=== PATIENT | female | born 1945 | race Caucasian/White ===

== ENCOUNTER 2020-05-21 13:53 | Emergency (ER) | payer MEDICARE, SELFPAY ==
--- NOTE | ~2020-05-21 | XR_ITS ---
XR chest 1V portable DATE: 05/21/2020 14:49 INDICATION: One-week postoperative from left partial pneumonectomy TECHNIQUE: Portable upright AP chest on 05/21/2020 at 1450 hours COMPARISON: 03/03/2007 PA and lateral chest FINDINGS: Postoperative changes including resection of portions of the left first, second, third and fourth ribs, partial left pneumonectomy. There is subcutaneous emphysema in the left apical and peria pical regions. Mild discoid atelectasis or scarring in the left lower lobe. No pulmonary consolidation is evident. N o pleural effusion or pulmonary vascular congestion. Normal heart size. Diffuse osteopenia. There is some chronic loss of height of T10. IMPRESSION: Recent partial left partial pneumonectomy and resection of multiple upper left ribs Reviewed, dictated and finalized at location A.
[2020-05-21 13:51] VITALS: PULSE 95; RESP 23; TEMP 36.4; O2SAT 98
[2020-05-21 14:03] VITALS: BP 136/74; PULSE 90; RESP 18; O2SAT 98
[2020-05-21 14:11] VITALS: PULSE 90
--- NOTE | 2020-05-21 14:14 | ECG_ITS ---
Measurements Intervals [place] Rate: 88 P: 101 IN: 107 QRS: 97 QRSD: 82 T: 90 QT: 356 QTc: 432 Interpretive Statements SINUS RHYTHM WITH SHORT IN INTERVAL RIGHT AXIS DEVIATION BORDERLINE T WAVE ABNORMALITY- HIGH LATERAL LEADS BASELINE ARTIFACT- I, III, AVR, AVL, V1 BORDERLINE ECG Electronically Signed On 05-22-2020 9:31:27 CDT by Darren Nielsen D.O.
[2020-05-21 14:23] LABS: Basophils Percent Auto 0.3 % (0.2-1.2); Eosinophils Absolute Auto 0.2 K/mm3 (0-0.3); Eosinophils Percent Auto 1.5 % (0-4.4); Hemoglobin 9.7 g/dL (12.0-15.0); Immature Granulocyte Absolute 0.04 K/mm3 (0.00-0.031); Immature Granulocyte Percent A 0.4 % (0-0.5); Lymphocytes Absolute Auto 0.77 K/mm3 (0.9-3.2); Lymphocytes Percent Auto 7.6 % (18.3-44.2); Mean Corpuscular HGB Conc 31.3 g/dl (32-36); Mean Corpuscular Hemoglobin 29.1 pg (26-34); Mean Corpuscular Volume 93.1 fl (80-100); Mean Platelet Volume 8.5 fl (7.4-10.4); Monocytes Absolute Auto 0.7 K/mm3 (0.1-0.6); Monocytes Percent Auto 6.7 % (2.6-8.5); Neutrophils Absolute Auto 8.5 K/mm3 (1.3-6.7); Neutrophils Percent Auto 83.5 % (45.5-73.1); Platelet Count Result 537 k/mm3 (150-375); Red Blood Count 3.33 M/mm3 (4.2-5.4); Red Cell Distribution Width 14.6 % (11.5-14.5); White Blood Count 10.2 K/mm3 (4.5-10.0)
[2020-05-21 14:39] LABS: Alanine Aminotransferase 10 U/L (4-35); Albumin Level 3.8 g/dL (3.5-5.1); Alkaline Phosphatase 104 U/L (38-126); Aspartate Amino Transferase 20 U/L (14-36); Bilirubin,Total 0.3 mg/dL (0.2-1.3); Blood Urea Nitrogen 18 mg/dL (7-17); Calcium 9.6 mg/dL (8.4-10.2); Carbon Dioxide 24 mmol/L (22-30); Chloride 101 mmol/L (98-107); Estimated Glomerular Filt Rate > 60; Glucose 112 mg/dL (65-105); Potassium 3.8 mmol/L (3.4-5.0); Sodium 135 mmol/L (137-145)
[2020-05-21] MEDS: SODIUM CHLORIDE 0.9% IV 1,000 ML 999 ML IV CONT (15:01)
--- NOTE | 2020-05-21 15:03 | ED.GENADULT ---
HPI - General Adult General Chief complaint: Weakness Stated complaint: weakness x few days Time Seen by Provider: 05/21/20 14:24 History of Present Illness HPI narrative: Patient is a 75 y/o female complaining of moderate to severe generalized weakness for last 3 days. She states that she has no appetite and has not been eating or drinking much during last few days. She denies any fever, chill, chest pain or abdominal pain. She has slight diarrhea, which she attributed to decreasing the dose of Oxycodone. Of note, she had left upper lobe rection approximately one month ago at [place]. Related Data Home Medications Medication Instructions Recorded Confirmed acetaminophen 500 mg PO Q6H PRN 05/21/20 calcium carbonate [Calcium 600] 600 mg PO DAILY 05/21/20 cholecalciferol (vitamin D3) 50 mcg PO DAILY 05/21/20 [Vitamin D3] cyclobenzaprine 5 mg PO BID PRN 05/21/20 gabapentin 100 mg PO TID 05/21/20 guaifenesin 600 mg PO Q12H PRN 05/21/20 lidocaine 1 patch TOPICAL DAILY 05/21/20 mirabegron 50 mg PO DAILY 05/21/20 ondansetron 8 mg PO Q8H PRN 05/21/20 oxycodone 10 mg PO Q6H PRN 05/21/20 polyethylene glycol 3350 [Miralax] 17 g PO DAILY 05/21/20 prochlorperazine maleate 10 mg PO Q6H PRN 05/21/20 Allergies Allergy/AdvReac Type Severity Reaction Status Date / Time Cephalosporins Allergy Severe Unknown Verified 05/21/20 14:12 bacitracin Allergy Unknown Unknown Verified 05/21/20 14:12 neomycin Allergy Unknown Unknown Verified 05/21/20 14:12 polymyxin B Allergy Unknown Unknown Verified 05/21/20 14:12 Review of Systems Constitutional: Constitutional: Denies chills, Denies fever(s), Denies headache(s), Reports lethargy, Reports malaise, Reports poor appetite, Reports weakness and Reports weight loss Eyes: Eyes: Denies blurry vision ENT: Denies headache(s) and Denies neck pain Cardiovascular: Cardiovascular: Denies chest pain and Denies dyspnea Respiratory: Respiratory: Denies cough and Denies dyspnea Gastrointestinal: Gastrointestinal: Denies abdominal pain, Denies diarrhea, Denies nausea and Denies vomiting Genitourinary: Genitourinary: Denies hematuria and Denies dysuria Musculoskeletal: Musculoskeletal: Denies back pain and Denies neck pain Neurologic: Denies headache(s) and Denies weakness PMFSH Past Medical History Medical History (Updated 05/21/20 @ 17:06 by Amber Gabriel MD) Lung cancer Exam Const: General: no acute distress and well developed Orientation/consciousness: oriented to person, oriented to place, oriented to time and patient oriented x3 HENMT: Head: normocephalic Ears: external ears normal General nose exam: Normal external nose present Eyes: General: appearance normal, both eyes and all related structures Conjunctivae: conjunctivae normal Neck: Neck: normal visual inspection and full ROM Chest: Chest palpation & inspection: normal inspection of the chest and no tenderness Resp: Effort & Inspection: normal respiratory effort Auscultation: clear to auscultation bilaterally Cardio: Rate: regular rate Rhythm: regular rhythm GI: GI Palp: No abdominal tenderness and Yes Soft to palpation Skin: General skin exam: normal color and turgor normal Neuro: General: oriented to person, oriented to place, oriented to time and patient oriented x3 Cognition (Neuro): normal cognition Extrem: General: normal to inspection, full ROM and no pedal edema Psych: Appearance: grossly normal Mental Status: mental status grossly normal Affect: normal affect Course Reevaluation(s) Reevaluation #1: Patient is able to ambulate without difficulty. Date: 05/21/20 Time: 16:40 Vital Signs Vital signs: Vital Signs Temperature 36.4 C 05/21/20 13:51 Pulse Rate 95 05/21/20 13:51 Respiratory Rate 23 H 05/21/20 13:51 Pulse Oximetry 98 05/21/20 13:51 Temperature 36.4 C 05/21/20 13:51 Pulse Rate 90 05/21/20 14:11 Respiratory Rate 18 05/21/20 14:03 Blood Pressure 136/74
[2020-05-21 15:30] VITALS: BP 112/74; PULSE 90; RESP 20; O2SAT 97
[2020-05-21 15:44] LABS: Add Urine Microscopic? YES; Amorphous Sediment Urine Few; Appearance Urine Cloudy (Clear); Bacteria Urine Trace /hpf; Bilirubin Urine Negative (Negative); Color Urine Yellow (Yellow); Glucose Urine UA Negative (Negative); Ketones Urine Trace mg/dL (Negative); Leukocyte Esterase Ur Negative LEU/UL (Negative); Mucus Urine Heavy /lpf; Nitrate Urine Negative (Negative); Protein Urine Negative (Negative); Specific Grav Ur 1.019 (1.001-1.035); Squamous Epithelial Cell Urine Few /hpf (Few)
[2020-05-21 15:45] LABS: Blood Urine Negative (Negative)
[2020-05-21 16:10] VITALS: PULSE 88; RESP 20; O2SAT 97
[2020-05-21 17:20] VITALS: BP 110/70; PULSE 89; RESP 20; O2SAT 97
== END 2020-05-21 17:20 | disposition home or self-care (01) ==
PROVIDERS: Emergency Medicine; Emergency Provider Emergency Medicine; PCP Internal Medicine
DX: R53.1 Weakness (principal); R63.0 Anorexia; Z68.1 Body mass index [BMI] 19.9 or less, adult
CPT/HCPCS: 36415; 71045; 80053; 81001; 85025; 87086; 93005; 96360; 99283; J7030

== ENCOUNTER 2020-09-02 13:14 | Emergency (ER) | payer MEDICARE, SELFPAY ==
[2020-09-02 13:31] VITALS: BP 133/76; PULSE 98; RESP 22; TEMP 36.6; O2SAT 100
--- NOTE | 2020-09-02 13:35 | ED.FEMALEGU ---
HPI - Female Genitourinary General Chief complaint: Urogenital-Female Stated complaint: uti Time Seen by Provider: 09/02/20 13:36 Source: patient Mode of arrival: ambulatory Limitations: no limitations History of Present Illness HPI Narrative: Nimo Osuna is a 75 yo female with a PMH of overactve bladder and chronic pain from chemo and radiation for lung cancer on left , who comes to express care with daughter for confusion and unsteadiness today. Daughter just returned from a trip and states that she is somewhat disoriented to day and time. Mother seems to be ambulating well inside clinic; denies pain Gabapentin tends to constipate patient; she took magnesium citrate 6 days ago and had diarrhea for 3 days, states when she has bouts of diarrhea by the time she ends up with UTI Related Data Home Medications Medication Instructions Recorded Confirmed mirabegron 50 mg PO DAILY 05/21/20 09/02/20 gabapentin 300 mg PO DAILY 09/02/20 09/02/20 Allergies Allergy/AdvReac Type Severity Reaction Status Date / Time Cephalosporins Allergy Severe Unknown Verified 05/21/20 14:12 bacitracin Allergy Unknown Unknown Verified 05/21/20 14:12 neomycin Allergy Unknown Unknown Verified 05/21/20 14:12 polymyxin B Allergy Unknown Unknown Verified 05/21/20 14:12 Review of Systems Review of Systems: Narrative: CONSTITUTIONAL: Denies fever, chills, sweats. EYES: Denies visual changes, redness, discharge. ENT: Denies rhinorrhea, congestion, sore throat, otalgia. CARDIOVASCULAR: Denies chest pain, palpitations, edema. RESPIRATORY: Denies dyspnea, wheezing, cough GASTROINTESTINAL: Denies abdominal pain, nausea, vomiting, diarrhea (6 days ago). GENITOURINARY: Denies dysuria, hematuria, abnormal discharge SKIN: Denies rash or itching. NEUROLOGIC: Denies numbness, or focal weakness.exam General confusion PSYCHIATRIC: Denies anxiety or depression. [facility] Past Medical History Medical History (Updated 09/02/20 @ 13:54 by Prisca Beyer CNP) Chronic pain Lung cancer Overactive bladder Surgical History Surgical History History of lobectomy of lung Social History Social History Smoking packs per day: 0.1 Smoking cigarettes per day: 2.0 Smoking status: Current every day smoker Tobacco type: cigarettes Alcohol intake: current Alcohol use details: Occasional only Living arrangements: alone Gender identity (if verbalized by the patient): Female Comments At time of signature, I agree with nursing past medical, surgical, social and family history. There is no relevant family history pertinent to the presenting complaint. Exam Narrative: Exam Narrative: GENERAL: Thin elderly , well-developed patient, in no apparent distress. HEAD: normocephalic, atraumatic. EYES: = Sclera clear/white. Vision is grossly intact. EARS: External ears normal, auditory canals clear and without drainage, TMs normal without perforation. Hearing grossly intact. NOSE: External nose normal without nasal discharge, nares without redness, no rhinorrhea. THROAT: Mucous membranes moist, NECK: Neck supple, CARDIOVASCULAR: Regular rate and rhythm without murmurs, gallops, or rubs. Has some left-sided chest wall pain intermittently RESPIRATORY: Clear to auscultation. Breath sounds equal bilaterally. Limited breath sounds lower lobes, no wheezes, rales, or rhonchi. GASTROINTESTINAL: Abdomen soft, non-tender, SKIN: warm, intact with no suspicious lesions or rash, good texture and turgor. NEURO: awake, alert, and oriented to person, place and time. There were no obvious focal neurologic abnormalities. Steady gait. EXTREMITIES: Normal range of motion. BACK: Nontender without deformity Course Course Emergency Course: Patient here for evaluation of confusion with a history of lung cancer and chemo and radiation They done-results show 3+ leuk
[2020-09-02 13:55] VITALS: BP 133/76; PULSE 98; RESP 22; TEMP 36.6; O2SAT 100
== END 2020-09-02 13:58 | disposition home or self-care (01) ==
PROVIDERS: Emergency Provider Nurse Practitioner
DX: N30.01 Acute cystitis with hematuria (principal); C34.92 Malignant neoplasm of unspecified part of left bronchus or lung; F17.210 Nicotine dependence, cigarettes, uncomplicated; Z90.2 Acquired absence of lung [part of]; N32.81 Overactive bladder
CPT/HCPCS: 81003; 87077; 87086; 87088; 87186; 99213; G0463